=== PATIENT | male | born 1975 | race Caucasian/White ===

== ENCOUNTER 2016-10-16 02:45 | Emergency (ER) | payer OTHER ==
[2016-10-16] MEDS ORDERED: HYDROCODONE/ACETAMINOPHEN 5/325MG TABLET ONE (03:21)
== END 2016-10-16 03:25 | disposition home or self-care (01) ==
LOC: ED 02:45
DX: K08.89 Other specified disorders of teeth and supporting structures (principal); F17.210 Nicotine dependence, cigarettes, uncomplicated; Z79.1 Long term (current) use of non-steroidal anti-inflammatories (NSAID); Z79.891 Long term (current) use of opiate analgesic
CPT/HCPCS: 99283 ×2; A9270

== ENCOUNTER 2016-10-17 21:43 | Emergency (ER) | payer OTHER ==
[2016-10-18] MEDS ORDERED: PREDNISONE 20 MG TABLET ONE (02:10)
[2016-10-18] MEDS ORDERED: OXYCODONE/ACETAMINOPHEN 5/325 MG TABLET ONE (02:10)
--- NOTE | 2016-10-18 09:10 | CT ---
FACIAL BONES W/O CON: 10/18/2016 12:44 AM CLINICAL HISTORY: Right facial and mouth pain Technique: 2.5 mm thick contiguous axial scans of face/paranasal sinuses were acquired in axial plane. Coronal reformats were also generated and reviewed. Imaging device: [email or web address] Aquilion [address] scanner Comparison: None. Findings: No definite fracture is noted in facial bones. Visualized paranasal sinuses are well-aerated. No evidence of abnormal air-fluid levels. Bilateral mastoids also appear unremarkable. Both globes, extraocular muscles, optic nerves and retrobulbar fat appears normal. Visualized upper aerodigestive tract appears normal. Multiple dental caries are present. Leftward deviated nasal septum with spur is also identified. Mandible and bilateral temporomandibular joints appear normal. There is slight asymmetric enlargement to the left pterygopalatine fossa and nasopharyngeal foramina in comparison to the right. Findings could relate to normal variance. Impression: No evidence of fracture/dislocation in facial bones. Other incidental findings as above. Preliminary report was provided by [employer] at approximately 0156 hours on 10/18/2016.
== END 2016-10-18 02:25 | disposition home or self-care (01) ==
LOC: ED 21:43
DX: K02.9 Dental caries, unspecified (principal); F17.210 Nicotine dependence, cigarettes, uncomplicated
CPT/HCPCS: 70486; 99283 ×2; A9270; J7512